=== PATIENT | male | born 1960 | race African-American/Black ===

== ENCOUNTER 2018-03-08 14:47 | Emergency (ER) | payer SELFPAY ==
[2018-03-08] MEDS ORDERED: ACETAMINOPHEN 325 MG TAB ONE (15:11)
== END 2018-03-08 16:14 | disposition home or self-care (01) ==
LOC: EDH 14:47
DX: S00.83XA Contusion of other part of head, initial encounter (principal); S00.12XA Contusion of left eyelid and periocular area, initial encounter; S50.02XA Contusion of left elbow, initial encounter; S80.02XA Contusion of left knee, initial encounter; E78.5 Hyperlipidemia, unspecified; I10 Essential (primary) hypertension; Z87.891 Personal history of nicotine dependence; W18.39XA Other fall on same level, initial encounter; Y93.01 Activity, walking, marching and hiking; Y92.89 Other specified places as the place of occurrence of the external cause; Y99.8 Other external cause status
CPT/HCPCS: 70450; 70486; 73080; 73562

== ENCOUNTER 2022-05-02 08:20 | Emergency (ER) | payer MEDICARE, OTHER ==
[~2022-05-02] VITALS: Ht 177.8 cm; Wt 98.4 kg
[2022-05-02] MEDS ORDERED: SOLU-MEDROL 125MG VIAL ONE (09:12)
[2022-05-02] MEDS ORDERED: SOLU-MEDROL 125MG VIAL IM ONE (09:30)
[2022-05-02] MEDS ORDERED: AMOX500C2 PO (09:50)
[2022-05-02] MEDS ORDERED: PRED20TA3 PO (09:50)
[2022-05-02] MEDS ORDERED: AMOXICILLIN 500 MG CAPSULE PO ONE (10:00)
[2022-05-02] MEDS ORDERED: IBUPROFEN 600 MG TABLET ONE (10:13)
[2022-05-02 10:56] VITALS: BP 138/76
== END 2022-05-02 10:58 | disposition home or self-care (01) ==
LOC: EDH 08:20
DX: L25.9 Unspecified contact dermatitis, unspecified cause (principal); I10 Essential (primary) hypertension; Z90.49 Acquired absence of other specified parts of digestive tract
CPT/HCPCS: 99283; 96372; J2930

== ENCOUNTER 2024-04-03 13:37 | Emergency (ER) | payer MEDICARE ==
[~2024-04-03] VITALS: Ht 177.8 cm; Wt 89.8 kg
[~2024-04-03 13:37] MED LIST: AMOX500C2 PO; PRED20TA3 PO
[2024-04-03 14:18] LABS: BASOPHILS # (AUTO) 0.07 K/uL (0.00-0.20); BASOPHILS % (AUTO) 0.8 % (0.0-5.0); EOSINOPHILS # (AUTO) 0.13 K/uL (0.00-0.70); EOSINOPHILS % (AUTO) 1.4 % (0.0-8.0); IMMATURE GRANULOCYTE ABSOLUTE 0.03 K/uL (0-1); LYMPHOCYTES % (AUTO) 10.4 % (21.0-51.0); MEAN CORPUSCULAR HEMOGLOBIN 28.2 pg (27.0-33.0); MONOCYTES # (AUTO) 0.4 K/uL (0.1-1.0); MONOCYTES % (AUTO) 3.8 % (3.0-13.0); NEUTROPHILS # (AUTO) 7.7 K/uL (1.8-7.7); NEUTROPHILS % (AUTO) 83.3 % (40.0-77.0); PLATELET COUNT (AUTO) 315 K/uL (130-400); RED BLOOD CELL COUNT(AUTO) 5.42 MIL/uL (4.50-6.20); RED CELL DISTRIBUTION WIDTH 13.4 % (11.0-15.5); WHITE BLOOD COUNT (AUTO) 9.2 K/uL (4.8-10.8)
[2024-04-03] MEDS: 0.9%NACL 1000ML 1,000 ML IV ONE (14:20)
[2024-04-03] MEDS: PANTOPrazole 40 MG/VIAL IVP ONE (14:21)
[2024-04-03] MEDS: morPHINE 4 MG SYG IVP ONE (14:21)
[2024-04-03] MEDS: ondanSETRON 4MG INJ IVP ONE (14:21)
[2024-04-03] MEDS: THIAMINE HCL 100 MG/ML 2ML VIAL IVP ONE (14:22)
[2024-04-03 14:30] LABS: CREATININE 1.1 mg/dL (0.5-1.3); POTASSIUM 3.9 mmol/L (3.5-5.1)
[2024-04-03 14:32] LABS: APPEARANCE,URINE CLOUDY (CLEAR); BILIRUBIN,URINE NEGATIVE (NEGATIVE); COLOR,URINE LIGHT-YELLOW (YELLOW); GLUCOSE, URINE (UA) NEGATIVE (NEGATIVE); KETONES,URINE 60 mg/dL (NEGATIVE); LEUKOCYTE ESTERASE ,URINE NEGATIVE Leu/uL (NEGATIVE); NITRATE,URINE NEGATIVE (NEGATIVE); OCCULT BLOOD,URINE NEGATIVE (NEGATIVE); PH,URINE 8.5 (5.0-8.0); PROTEIN,URINE NEGATIVE (NEGATIVE); UROBILINOGEN,URINE 0.2 mg/dL (0.2-1.0)
[2024-04-03 14:37] LABS: ADD UA MICROSCOPIC YES
[2024-04-03 14:39] LABS: AMPHET/METH SCREEN,URINE NEGATIVE (NEGATIVE); BARBITURATE SCREEN, URINE NEGATIVE (NEGATIVE); BENZODIAZEPINES SCREEN,URINE NEGATIVE (NEGATIVE); CANNABINOID SCREEN,URINE POSITIVE (NEGATIVE); COCAINE SCREEN,URINE POSITIVE (NEGATIVE); OPIATE SCREEN,URINE NEGATIVE (NEGATIVE); PHENCYCLIDINE SCREEN,URINE NEGATIVE (NEGATIVE)
[2024-04-03 14:39] LABS: ALBUMIN 4.3 g/dL (3.5-5.0); BILIRUBIN,DIRECT 0.1 mg/dL (0.0-0.3); BILIRUBIN,TOTAL 0.6 mg/dL (0.2-1.0); TOTAL PROTEIN, SERUM 8.1 g/dL (6.0-8.3)
[2024-04-03 14:41] LABS: BACTERIA,URINE RARE /HPF (None Seen); SQUAMOUS EPITHELIAL CELL,UR RARE /HPF (0-2); WBC,URINE 0-1 /HPF (0-1)
--- NOTE | 2024-04-03 14:42 | ERN ---
ED Note History of Present Illness Stated Complaint: NAUSEA SINCE THIS AM Chief Complaint: Nausea,Vomiting,Diarrhea Time Seen by MD: 13:42 Time Seen by Midlevel: 13:42 Dictation: The patient is a 63-year-old male with a history of hypertension, hyperli pidemia, cholecystectomy, alcohol abuse who presents to the emergency department with complaints of nausea, nonbloody vomiting, periumbilical pain onset this morning. Patient denies any constipation or diarrhea, fevers. Denies any headaches. Patient reports he drinks three to 4 times a week. Had a drink last night. Patient reports he has chronic nausea and abdominal pain. Reports he had an EGD done on the and was told he had gastritis, nonobstructing diaphragmatic hernia. Allergies: Coded Allergies: No Known Drug Allergies (Unverified Allergy, Unknown, 05/02/22) Home Meds Active Scripts Ondansetron (Ondansetron Odt) 4 Mg Tab.rapdis, 1 TAB PO Q6HPRN PRN for nausea/vomiting for 4 Days, #16 TAB 0 Refills Prov:HARESH HOBSON 04/03/24 Amoxicillin (Amoxicillin) 500 Mg Capsule, 500 MG PO BID, #15 CAP 0 Refills Prov:CHRISTINA STRANGE MD 05/02/22 Prednisone (Prednisone) 20 Mg Tablet, 1 TAB PO AD for 6 Days, #14 TAB 0 Refills TAKE 1 TAB BY MOUTH THREE TIMES PER DAY X3 DAYS, THEN TAKE 1 TAB BY MOUTH TWICE A DAY X2 DAYS, THEN TAKE 1 TAB BY MOUTH ONCE A DAY X1 DAY. Prov:CHRISTINA STRANGE MD 05/02/22 Past Medical History Past Medical History: High Cholesterol, Hypertension Additional Past Medical Hx: INTERMITTENT NAUSEA Surgical History: Cholecystectomy, Other Surgical History Other: EGD RN Note Reviewed/Agreed w/PFSH: Yes Review of System Dictation Constitutional: Negative for fever,chills, and weight loss Eyes: Negative for injury, pain,redness, and discharge ENT: Negative for injury,pain or swelling Cardiovascular: Negative for chest pain, palpitations, and edema Respiratory: Negative for shortness of breath, cough, and wheezing, Abdomen/GI: Negative for diarrhea, and constipation positive for abdominal pain, nausea, vomiting, Back: Negative for injury and pain : Negative for injury, bleeding and discharge MS/Extremity: Negative for injury and deformity Skin: Negative for rash, and discoloration Neuro: Negative for headache, weakness, numbness, tingling, and seizure Psych: Negative for suicide ideation, homicidal ideation, and hallucinations Initial Vital Sign VS Vital Signs Date Time Temp Pulse Resp B/P (MAP) Pulse Ox O2 Delivery O2 Flow Rate FiO2 04/03/24 13:38 97.9 78 21 179/89 100 Room Air 0 04/03/24 13:55 21 Physical Exam Dictation Vital Signs reviewed General Appearance: Alert, oriented x 3, no acute distress, well developed, nourished. Head and Face: non-traumatic. Eyes: PERRL, pink conjunctivas, eyelid no trauma, anterior chamber with arcus senilis. Ears: Pinnas intact and no signs of trauma or erythema ear canals clear and no discharge TM no erythema Nose: No discharge, no bleeding. Oropharynx: Mouth normal, tongue pink. pharynx clear,no erythema, tonsils no exudates, no abscesses noted, mucous membrane moist Neck: Supple, non-tender, no thyromegaly, no masses, no JVD, no bruits Breast:Deferred Chest:No tenderness, no crepitus, no paradoxical movement, no retractions Lungs:Clear, well-ventilated, symmetric, no rales, no wheezing, no rhonchi, no stridor, good breath sounds bilaterally Heart: Regular rate, regular rhythm, no murmur, no gallops Vascular: no peripheral edema, Abdomen: Soft, positive bowel sounds, nondistended, no guarding, nontender, no rebound, no masses no hepatomegaly, no splenomegaly, no Felton's sign, no hernias. Rectal: Deferred Genital: Deferred Neurological: Normal speech, motor function intact, sensory function intact Musculoskeletal: Neck nontender, full range of motion, back nontender, full range of motion, Extremities: nontender, full range of motion Skin: Color pink, dry, no turgor, no rash, no lacerations, no abrasions, no contusions. Lymphatic: Deferred Results (Laboratory/Radiology) Laboratory/Radiology Laboratory Tests Test 04/03/24 13:53 04/03/24 14:18 White Blood Count 9.2 K/uL (4.8-10.8) Red Blood Count 5.42 MIL/uL (4.50-6.20) Hemoglobin 15.3 g/dL (14.0-18.0) Hematocrit 45.0 % (42-54) Mean Corpuscular Volume 83.0 fL (79-99) Mean Corpuscular Hemoglobin 28.2 pg (27.0-33.0) Mean Corpuscular Hemoglobin Concent 34.0 g/dL (32.0-36.0) Red Cell Distribution Width 13.4 % (11.0-15.5) Platelet Count 315 K/uL (130-400) Mean Platelet Volume 10.7 fL (7.5-10.5) H Immature Granulocyte % (Auto) 0.3 % (0-1) Neutrophils (%) (Auto) 83.3 % (40.0-77.0) H Lymphocytes (%) (Auto) 10.4 % (21.0-51.0) L Monocytes (%) (Auto) 3.8 % (3.0-13.0) Eosinophils (%) (Auto) 1.4 % (0.0-8.0) Basophils (%) (Auto) 0.8 % (0.0-5.0) Neutrophils # (Auto) 7.7 K/uL (1.8-7.7) Lymphocytes # (Auto) 1.0 K/uL (1.0-4.8) Monocytes # (Auto) 0.4 K/uL (0.1-1.0) Eosinophils # (Auto) 0.13 K/uL (0.00-0.70) Basophils # (Auto) 0.07 K/uL (0.00-0.20) Absolute Immature Granulocyte (auto 0.03 K/uL (0-1) Nucleated Red Blood Cells 0.0 % (0.0-0.19) Sodium Level 137 mmol/L (136-145) Potassium Level 3.9 mmol/L (3.5-5.1) Chloride Level 101 mmol/L (101-111) Carbon Dioxide Level 25 mmol/L (21-32) Blood Urea Nitrogen 14 mg/dL (7-18) Creatinine 1.1 mg/dL (0.5-1.3) Glomerular Filtration Rate Calc 76 mL/min (>90) Random Glucose 102 mg/dL (70-105) Total Calcium 9.5 mg/dL (8.5-10.1) Total Bilirubin 0.6 mg/dL (0.2-1.0) Direct Bilirubin 0.1 mg/dL (0.0-0.3) Aspartate Amino Transf (AST/SGOT) 26 U/L (10-37) Alanine Aminotransferase (ALT/SGPT) 32 U/L (12-78) Alkaline Phosphatase 55 U/L (50-136) Total Creatine Kinase 344 U/L (21-232) H Troponin I High Sensitivity 22 ng/L (4-75) Total Protein 8.1 g/dL (6.0-8.3) Albumin 4.3 g/dL (3.5-5.0) Lipase 25 U/L (16-77) Urine Color LIGHT-YELLOW (YELLOW) Urine Appearance CLOUDY (CLEAR) H Urine pH 8.5 (5.0-8.0) H Urine Specific [place] 1.013 (1.001-1.031) Urine Protein NEGATIVE mg/dL (NEGATIVE) Urine Glucose (UA) NEGATIVE mg/dL (NEGATIVE) Urine Ketones 60 mg/dL (NEGATIVE) H Urine Occult Blood NEGATIVE (NEGATIVE) Urine Nitrate NEGATIVE (NEGATIVE) Urine Bilirubin NEGATIVE mg/dL (NEGATIVE) Urine Urobilinogen 0.2 mg/dL (0.2-1.0) Urine Leukocyte Esterase NEGATIVE [place]/uL Urine RBC 6-10 /HPF (0-1) H Urine WBC 0-1 /HPF (0-1) Urine Squamous Epithelial Cells RARE /HPF (0-2) Urine Amorphous Crystals (Auto) MANY /LPF (None Seen) Urine Bacteria RARE /HPF (None Seen) Urine Opiates Screen NEGATIVE (NEGATIVE) Urine Barbiturates Screen NEGATIVE (NEGATIVE) Urine Phencyclidine Screen NEGATIVE (NEGATIVE) Urine Amphetamines Screen NEGATIVE (NEGATIVE) Urine Benzodiazepines Screen NEGATIVE (NEGATIVE) Urine Cocaine Screen POSITIVE (NEGATIVE) H Urine Marijuana (THC) Screen POSITIVE (NEGATIVE) H Labs Reviewed?: Yes EKG: (+) rhythm (Sinus rhythm,) EKG Comment: EKG 04/03/2024 1401 ventricular rate 71, regular rate and rhythm, normal sinus rhythm, no STEMI. ED Course ED Course Orders Procedure Category Date Status Time Cbc With Differential LAB 04/03/24 Complete 13:56 Troponin I High LAB 04/03/24 Complete Sensitivity 13:56 Urinalysis Profile LAB 04/03/24 Complete 13:56 12 Lead Ekg Tracing- EKG 04/03/24 Complete Technical 13:56 0.9%Nacl 1000ml (Ns PHA 04/03/24 Complete 1000ml) 14:00 Morphine 4mg Syg PHA 04/03/24 Complete (Morphine 4mg Syg) 14:00 Ondansetron 4mg Inj PHA 04/03/24 Complete (Zofran 4mg Inj) 14:00 Pantoprazole 40mg Inj PHA 04/03/24 Complete (Protonix 40mg Inj 14:00 Creatine Kinase, Total LAB 04/03/24 Complete 13:56 Lipase LAB 04/03/24 Complete 13:56 Basic Metabolic Panel LAB 04/03/24 Complete 13:56 Hepatic Function Panel LAB 04/03/24 Complete 13:56 Thiamine Hcl (Vitamin PHA 04/03/24 Complete B-1) 14:00 Drug Screen Urine LAB 04/03/24 Complete 13:59 Current Medications Medications (Trade) Dose Ordered Sig/Fortino Route PRN Reason Start Time Stop Time Status Last Admin Dose Admin Morphine Sulfate (morPHINE 4MG SYG) 4 mg ONCE ONCE IVP 04/03/24 14:00 04/03/24 14:01 DC 04/03/24 14:21 Ondansetron HCl (zoFRAN 4MG INJ) 4 mg ONCE ONCE IVP 04/03/24 14:00 04/03/24 14:01 DC 04/03/24 14:21 Pantoprazole Sodium (PROTonix 40MG INJ) 40 mg ONCE ONCE IVP 04/03/24 14:00 04/03/24 14:01 DC 04/03/24 14:21 Sodium Chloride 1,000 ml @ 0 mls/hr ONCE ONCE IV 04/03/24 14:00 04/03/24 14:01 DC 04/03/24 14:20 Thiamine HCl (Vitamin B-1) 100 mg ONCE ONCE IVP 04/03/24 14:00 04/03/24 14:01 DC 04/03/24 14:22 Vital Signs Date Time Temp Pulse Resp B/P (MAP) Pulse Ox O2 Delivery O2 Flow Rate FiO2 04/03/24 15:32 98.4 61 19 101/56 100 Room Air* 0 04/03/24 13:55 98.8 77 23 171/96 100 Room Air* 0 04/03/24 13:38 97.9 78 21 179/89 100 Room Air 0 Medical Decision Making MDM MDM The patient is a 63-year-old male with a history of hypertension, hyperlipidemia, cholecystectomy, alcohol abuse who presents to the emergency department with complaints of nausea, nonbloody vomiting, periumbilical pain onset this morning. Patient denies any constipation or diarrhea, fevers. Reports he bowel movement prior to arrival, nonbloody Denies any headaches. Patient reports he drinks three to 4 times a week. Had a drink last night. Patient reports he has chronic nausea and abdominal pain. Reports he had an EGD done on the and was told he had gastritis, nonobstructing diaphragmatic hernia. CBC showed no leukocytosis, no anemia, chemistry showed no electrolyte imbalance, normal renal function, normal liver enzymes, urinalysis positive for cocaine and marijuana. Patient reports he takes marijuana daily for chronic pain. On reassessment patient reports improving in pain and nausea. Patient with a nontender abdomen on both assessment. Laboratory discussed with the patient who agrees to be discharged and follow up with PCP and twister hand. Differential diagnosis: Electrolyte imbalance, dehydration, gastritis, g astroenteritis, drug abuse Need for hospitalization: Patient does not meet criteria for hospitalization. There are no social concerns with this patient. DX & DISP Disposition: Discharge Departure Impression: Primary Impression: Cannabinoid hyperemesis syndrome Additional Impressions: Nausea and vomiting, Cocaine abuse, Gastritis Condition: Stable Scripts Ondansetron (Ondansetron Odt) 4 Mg Tab.rapdis 1 TAB PO Q6HPRN PRN for nausea/vomiting for 4 Days, #16 TAB 0 Refills Prov: HARESH HOBSON [facility] 04/03/24 Additional Instructions: Please follow up with your twister hand in 1-2 days. And your primary doctor. If symptoms worsen, severe abdominal pain, bloody stools or vomit please return to ER. FOLLOW-UP WITH PRIMARY CARE PROVIDER IN 1 TO 2 DAYS. TAKE MEDICATIONS DIRECTED HERE IN THE EMERGENCY ROOM. OKAY TO CONTINUE HOME MEDICATIONS UNLESS OTHERWISE DISCUSSED DURING YOUR VISIT IN THE EMERGENCY ROOM TODAY. RETURN TO YOUR NEAREST EMERGENCY ROOM IF SYMPTOMS WORSEN OR IF THERE IS NO IMPROVEMENT. CALL 911 IF YOU NEED IMMEDIATE ASSISTANCE. TAKE TYLENOL OR MOTRIN [id number] TER NEEDED AND IF NO CONTRAINDICATIONS ARE PRESENT. INCREASE ORAL HYDRATION. A WOUND CULTURE OR URINE CULTURE WAS ORDERED HERE IN THE EMERGENCY ROOM DEPARTMENT PLEASE FOLLOW-UP WITH PRIMARY CARE PROVIDER AND ADVISE THEM TO GET REPEAT PORTS FROM OUR FACILITY. IF YOU HAD ANY OLAF WRAP/SPLINTS THAT WERE APPLIED HERE, PLEASE DO NOT REMOVE THEM UNTIL YOU SEE YOUR PRIMARY CARE OR SP ECIALTY. Referrals: SELF,REFERRAL (PCP) Time of Disposition: 15:09 I have reviewed the case, and I agree with, Diagnosis and Plan I performed this substantive portion of this visit. I have reviewed and personally made and approve the management plan that is documented in the note by myself or the HIPOLITO. I acknowledge full responsibility for the patient's management plan. HARESH HOBSON Apr 03, 2024 14:42 AMISHA GARZA MD Apr 03, 2024 18:38
[2024-04-03] MEDS ORDERED: ONDA-243 PO (15:11)
[2024-04-03 15:32] VITALS: BP 101/56; PULSE 61; RESP 19; TEMP 98.5; O2SAT 100
--- NOTE | 2024-04-03 15:39 | EKG ---
[facility] Test Date: 2024-04-03 Test Time: 14:01:36 Pat Name: SURAJ CARBAJAL Department: ED Room: Gender: M Lead Assembler: [id number] : 1960 Requested By: HARESH HOBSON Order Number: [id number] Reading MD: Cydney Villanueva Measurements Intervals [place] Rate: 71 P: 49 MD: 202 QRS: 0 QRSD: 86 T: 26 QT: 408 QTc: 444 Interpretive Statements Sinus rhythm Low voltage, extremity leads Probable anteroseptal infarct, old No previous ECG available for comparison Electronically Signed On 04-04-2024 10:07:58 [facility] by Cydney Villanueva Please click the below link to view image of tracing.
== END 2024-04-03 15:40 | disposition home or self-care (01) ==
LOC: EDH 13:37
DX: K29.70 Gastritis, unspecified, without bleeding (principal); R11.2 Nausea with vomiting, unspecified; F14.10 Cocaine abuse, uncomplicated; E78.00 Pure hypercholesterolemia, unspecified; I10 Essential (primary) hypertension; Z90.49 Acquired absence of other specified parts of digestive tract
CPT/HCPCS: 99284; 96374; 96375; 96361; 82550; 80076; 84484; 80048; 80305; 83690; 85025; 36415; 93005; 81001; J7030; J3411; J2405; J2270; J2470